=== PATIENT | male | born 1990 | race Caucasian/White ===

== ENCOUNTER 2019-05-02 20:58 | Emergency (ER) | payer OTHER ==
[~2019-05-02] VITALS: Ht 167.6 cm; Wt 77.1 kg
[2019-05-02 21:00] VITALS: BP 155/93
--- NOTE | 2019-05-02 22:21 | PHYS DOC ---
Past Medical History Past Medical History: Arrhythmia, Other Additional Past Medical Histor: "HX OF BENIGN PVC'S" Past Surgical History: Other Additional Past Surgical Histo: "COSMETIC CHEST SX", WISDOM TEETH REMOVAL Alcohol Use: Occasionally Drug Use: None Adult General Chief Complaint Chief Complaint: LACERATION/AVULSION HPI HPI Patient is a 29 year old male who presents with left index finger skin avulsion that occurred 45 minutes ago coming to the ED while cutting chicken with a knife. Patient is right-handed. Review of Systems Review of Systems Constitutional: Denies fever or chills [] Musculoskeletal: Denies back pain or joint pain [] Integument: Skin avulsion left lateral index finger Neurologic: Denies headache, focal weakness or sensory changes [] All other systems were reviewed and found to be within normal limits, except as documented in this note. Allergies Allergies Allergies Coded Allergies Type Severity Reaction Last Updated Verified No Known Drug Allergies 05/02/19 No Physical Exam Physical Exam Constitutional: Well developed, well nourished, no acute distress, non-toxic appearance. [] Skin: Distal and lateral aspect of the left index finger with a skin avulsion roughly 0.5 cm x 0.3 cm. There is no obvious tendon involvement. Patient able to flex and extend the finger at the MIP PP and DIP joints. Adequate radius sensation to the finger. +2 left radial pulse. Finger is still bleeding. Back: No tenderness, no CVA tenderness. [] Extremities: No tenderness, no cyanosis, no clubbing, ROM intact, no edema. [] Neurologic: Alert and oriented X 3, normal motor function, normal sensory function, no focal deficits noted. [] Psychologic: Affect normal, judgement normal, mood normal. [] Current Patient Data Vital Signs Vital Signs Date Time Temp Pulse Resp B/P (MAP) Pulse Ox O2 Delivery O2 Flow Rate FiO2 05/02/19 21:00 98.0 83 16 155/93 (113) 98 Room Air 98.0 EKG EKG [] Radiology/Procedures Radiology/Procedures [] Course & Med Decision Making Course & Med Decision Making Pertinent Labs and Imaging studies reviewed. (See chart for details) This is a 29-year-old male patient presenting to the ED today with a skin avulsion of the left index finger, on arrival to the ED, finger was still bleeding. Pressure was applied. Bleeding had slowed down but not completely stopped. Dermabond was used, bleeding has stopped. Tetanus up-to-date. Discharged to home. Provided wound care instructions and return precautions. Dragon Disclaimer Dragon Disclaimer This electronic medical record was generated, in whole or in part, using a voice recognition dictation system. Departure Departure Impression: Primary Impression: Avulsion of skin of finger Disposition: HOME, SELF-CARE Condition: STABLE Referrals: NO PCP (PCP) follow up with your doctor in 1-2 weeks as needed Patient Instructions: Deep Skin Avulsion Additional Instructions: You have deep skin finger avulsion. Bleeding has stopped. Keep the area clean and dry. Apply Neosporin to the area twice a day starting tomorrow evening. Keep the area clean and dry. Monitor the area for signs of infection including increased redness, warmth or yellow drainage from the area and return to the ED or see your doctor if they occur. Problem Qualifiers Primary Impression: Avulsion of skin of finger Encounter type: initial encounter Qualified Codes: S61.209A - Unspecified open wound of unspecified finger without damage to nail, initial encounter CATHY SANCHEZ CEO NA May 02, 2019 22:21
== END 2019-05-02 22:36 | disposition home or self-care (01) ==
LOC: ER 20:58
DX: S61.211A Laceration without foreign body of left index finger without damage to nail, initial encounter (principal); W26.0XXA Contact with knife, initial encounter; Y93.89 Activity, other specified; Y92.89 Other specified places as the place of occurrence of the external cause; Y99.8 Other external cause status
CPT/HCPCS: 12001; 99281; 99282; 99283